=== PATIENT | male | born 1985 | race Caucasian/White ===

== ENCOUNTER 2020-12-13 12:31 | Emergency (ER) | payer SELFPAY ==
--- NOTE | ~2020-12-13 | XR_ITS ---
EXAMINATION: XR chest 1V portable 12/13/2020 13:34 INDICATION: Right sided chest pain with shortness of breath PROCEDURE: AP portable chest COMPARISON: No prior studies for comparison. FINDINGS: The lungs are clear. The cardiomediastinal silhouette is within normal limits. There are no pleural effusions. There is no pneumothorax suspected. IMPRESSION: 1: NO ACUTE CARDIOPULMONARY DISEASE. Reviewed, dictated and finalized at location A.
[2020-12-13 12:45] VITALS: BP 129/90; PULSE 79; RESP 20; TEMP 36.9; O2SAT 100
[2020-12-13 13:00] VITALS: PULSE 78
--- NOTE | 2020-12-13 13:06 | ECG_ITS ---
Measurements Intervals [place] Rate: 78 P: 34 OK: 139 QRS: 41 QRSD: 105 T: 31 QT: 365 QTc: 416 Interpretive Statements SINUS RHYTHM ST ELEVATION IN ANTEROLAT/INF LEADS- PROABLY EARLY REPOLARIZATION BORDERLINE ECG Electronically Signed On 12-13-2020 13:08:27 CDT by Jimi Gutierrez D.O.
--- NOTE | 2020-12-13 13:08 | ED.CHESTPAIN ---
HPI - Chest Pain General Chief Complaint: Chest Pain Stated Complaint: chest pain Time Seen by Provider: 12/13/20 12:38 Source: patient Mode of arrival: ambulatory Limitations: no limitations History of Present Illness HPI narrative: This is a 35 year old male who presents for evaluation of right chest pain. Patient states around 11 am this morning he woke up with right sternal chest pain. He is unable to describe his pain. His pain has improved and he has not taken anything pain. He states his pain does not radiate but it is associated with some mild shortness of breath. He is extremely anxious, and he admits to using meth and alcohol 4 days ago. He states he was on a 4 day meth kathy until 4 days ago, and at that time he was assessed at [place] for paranoia. He also admits to drinking alcohol daily until 4 days ago. He reports he had not slept for 4 days. He denies associated URI symptoms, nausea, vomiting, fever, chills. He denies history of alcohol withdrawal symptoms. Related Data Allergies Allergy/AdvReac Type Severity Reaction Status Date / Time No Known Allergies Allergy Verified 12/13/20 13:01 Review of Systems Review of Systems: All systems reviewed & are unremarkable except as noted in HPI and below Constitutional: Constitutional: Denies chills and Denies fever(s) ENT: Denies nasal congestion and Denies sore throat Cardiovascular: Cardiovascular: Reports chest pain Respiratory: Respiratory: Denies cough, Reports dyspnea and Denies wheezing Gastrointestinal: Gastrointestinal: Denies abdominal pain, Denies diarrhea, Denies nausea and Denies vomiting Psychiatric: Psychiatric: Reports anxiety PMFSH Past Medical History Medical History ADHD Depression Tobacco use Surgical History Surgical History No history of previous surgery Social History Social History (Updated 12/13/20 @ 13:09 by Alysa Morrow MD) Social History: 3 cups per day (Tea and Cola) Smoking packs per day: 1 Smoking cigarettes per day: 20.0 Years smoked: 15 Smoking pack-years: 15.00 Smoking status: Current every day smoker Tobacco type: cigarettes Alcohol intake: current Substance use: current Substance use type: methamphetamine Exam Const: General: alert Orientation/consciousness: patient oriented x3 Other: anxious HENMT: Head: normocephalic and atraumatic Face and sinus: normal facial exam Mouth: Yes Normal oral and palatal mucosa present, Yes lip normal, Yes oropharynx normal and Yes moist mucous membranes Throat: posterior oropharynx normal, tonsils normal and uvula midline Eyes: Pupils: Equal, round and reactive pupils present EOM: EOMs intact bilaterally Resp: Effort & Inspection: normal respiratory effort and no retractions Auscultation: clear to auscultation bilaterally Cardio: Rate: regular rate Rhythm: regular rhythm Heart sounds: no murmurs GI: GI Palp: Yes Soft to palpation, Yes Tenderness to palpation present (GI) (RUQ), No Guarding due to palpation present (GI) and No Rigid due to palpation Auscultation: normal bowel sounds Skin: General skin exam: normal color Rashes: no rashes Neuro: General: patient oriented x3, moves all extremities and CN's II-XI intact bilaterally Extrem: General: normal to inspection Psych: Affect: Anxious affect present Course Reevaluation(s) Reevaluation #1: Patient was sleeping but he is easily arousable. He was able to get up and provide a urine sample. He has no complaints. Date: 12/13/20 Time: 14:59 Reevaluation #2: Patient still has no complaints. I spoke with him and his mother that labs are unremarkable. He will follow up with PCP and outpatient substance abuse center. Date: 12/13/20 Time: 16:41 Vital Signs Vital signs: Vital Signs Temperature 98.4 F 12/13/20 12:45 Pulse Rate 79 12/13/20 12:45 Respiratory Rate 20 12/13/20 12:45 Blood Pressu
[2020-12-13] MEDS: LACTATED RINGERS 1,000 ML 999 ML IV CONT (13:13)
[2020-12-13] MEDS: LORazepam INJ (*CRX) 2 MG/ML VIAL 1 MG IV PUSH (13:14)
[2020-12-13 13:26] LABS: Basophils Percent Auto 0.5 % (0.2-1.2); Eosinophils Absolute Auto 0.1 K/mm3 (0-0.3); Eosinophils Percent Auto 1.5 % (0-4.4); Hematocrit 42.2 % (42.0-52.0); Hemoglobin 14.6 g/dL (14.0-18.0); Immature Granulocyte Absolute 0.01 K/mm3 (0.00-0.031); Immature Granulocyte Percent A 0.2 % (0-0.5); Lymphocytes Absolute Auto 2.53 K/mm3 (0.9-3.2); Lymphocytes Percent Auto 42.8 % (18.3-44.2); Mean Corpuscular HGB Conc 34.6 g/dl (32-36); Mean Corpuscular Hemoglobin 32.6 pg (26-34); Mean Corpuscular Volume 94.2 fl (80-100); Mean Platelet Volume 11.3 fl (7.4-10.4); Monocytes Absolute Auto 0.4 K/mm3 (0.1-0.6); Monocytes Percent Auto 6.9 % (2.6-8.5); Neutrophils Absolute Auto 2.8 K/mm3 (1.3-6.7); Neutrophils Percent Auto 48.1 % (45.5-73.1); Platelet Count Result 242 k/mm3 (150-375); Red Blood Count 4.48 M/mm3 (4.6-6.20); Red Cell Distribution Width 12.5 % (11.5-14.5); White Blood Count 5.9 K/mm3 (4.5-10.0)
[2020-12-13 13:33] LABS: INR 0.8; Prothrombin Time 12.1 Seconds (11.1-14.7)
[2020-12-13 13:34] LABS: Partial Thromboplastin Time 25.7 SECONDS (22.3-36.8)
[2020-12-13 13:37] LABS: D Dimer 0.27 ug/mL (<0.48); Ethanol < 10 mg/dL (<10)
[2020-12-13 13:40] LABS: Alanine Aminotransferase 40 U/L (4-50); Albumin Level 4.1 g/dL (3.5-5.1); Alkaline Phosphatase 59 U/L (38-126); Anion Gap 8 mmol/L (8-16); Aspartate Amino Transferase 30 U/L (17-59); Bilirubin,Total 0.4 mg/dL (0.2-1.3); Blood Urea Nitrogen 16 mg/dL (9-20); Calcium 9.1 mg/dL (8.4-10.2); Carbon Dioxide 21 mmol/L (22-30); Chloride 108 mmol/L (98-107); Estimated CRCL calculation 90 ml/min; Estimated Glomerular Filt Rate > 60; Glucose 130 mg/dL (75-110); Lipase 143 U/L (23-300); Magnesium 1.6 mg/dL (1.6-2.3); Potassium 3.6 mmol/L (3.4-5.0); Sodium 137 mmol/L (137-145)
[2020-12-13 13:48] LABS: Troponin I < 0.012 ng/mL (0.000-0.034)
[2020-12-13 13:53] LABS: Creatine Kinase 64 U/L (55-170)
[2020-12-13 14:36] VITALS: BP 138/85; PULSE 60; RESP 15; O2SAT 97
[2020-12-13 15:12] LABS: Add Urine Microscopic? YES; Appearance Urine Clear (Clear); Bilirubin Urine Negative (Negative); Blood Urine Negative (Negative); Color Urine Yellow (Yellow); Glucose Urine UA Negative (Negative); Ketones Urine Negative (Negative); Leukocyte Esterase Ur Negative LEU/UL (Negative); Mucus Urine Rare /lpf; Nitrate Urine Negative (Negative); Protein Urine Negative (Negative); RBC Urine 0-2 /hpf (0-2); Specific Grav Ur 1.021 (1.001-1.035); WBC Urine 0-3 /hpf
[2020-12-13 15:28] LABS: Barbiturate Screen Urine Negative (Negative); Benzodiazepines Screen Urine Negative (Negative)
[2020-12-13 15:31] LABS: Cannabinoid Screen Urine Negative (Negative); Cocaine Screen Urine Negative (Negative); Methadone Screen Urine Negative (Negative); Opiate Screen Urine Negative (Negative); Phencyclidine Screen Urine Negative (Negative)
[2020-12-13 15:36] VITALS: BP 128/85; PULSE 58; RESP 16; O2SAT 95
[2020-12-13 15:56] LABS: Amphetamine Screen Urine Positive (Negative)
[2020-12-13 16:28] VITALS: BP 148/77; PULSE 56; RESP 16; O2SAT 96
[2020-12-13 16:29] LABS: Troponin I < 0.012 ng/mL (0.000-0.034)
[2020-12-13 17:30] VITALS: BP 110/78; PULSE 74; RESP 16; O2SAT 94
== END 2020-12-13 17:31 | disposition home or self-care (01) ==
PROVIDERS: Emergency Provider General Practice; PCP Family Medicine
DX: F15.10 Other stimulant abuse, uncomplicated (principal); F10.10 Alcohol abuse, uncomplicated; F41.9 Anxiety disorder, unspecified; R07.89 Other chest pain; F90.9 Attention-deficit hyperactivity disorder, unspecified type; F32.9 Major depressive disorder, single episode, unspecified; F17.210 Nicotine dependence, cigarettes, uncomplicated; Y90.0 Blood alcohol level of less than 20 mg/100 ml
CPT/HCPCS: 36415; 71045; 80053; 80307; 81001; 82550; 83690; 83735; 84484; 85025; 85380; 85610; 85730; 93005; 96361; 96374; 99284; J2060; J7120